=== PATIENT | female | born 2000 | race Caucasian/White ===

== ENCOUNTER 2020-10-31 06:40 | Emergency (ER) | payer OTHER ==
[~2020-10-31] VITALS: Ht 162.6 cm; Wt 63.5 kg
[2020-10-31 06:45] VITALS: BP 126/87
--- NOTE | 2020-10-31 06:45 | NUR ---
to bed ambulatory
--- NOTE | 2020-10-31 06:56 | NUR ---
PATIENT 19 Y/O FEMALE BIB SELF FOR C/O COUGH AND SORE THROAT X 1 DAY. PER PATIENT, ' IT BEGAN THIS MORNING AND IT HURTS TO SWALLOW." PATIENT STATES PAIN 2/10 IN CHEST WHEN COUGHING AND RADIATES TO UPPER BACK. MEDHX: DENIES ALLERGIES: WILBERT
--- NOTE | 2020-10-31 06:59 | NUR ---
ERMD EVALUATING PATIENT AT BEDSIDE.
[2020-10-31 07:10] VITALS: BP 126/87
--- NOTE | 2020-10-31 07:10 | NUR ---
Patient discharged with v/s stable. Written and verbal after care instructions given and explained. Patient verbalized understanding. Ambulatory with steady gait. All questions addressed prior to discharge. Advised to follow up with PMD.
== END 2020-10-31 07:10 | disposition home or self-care (01) ==
LOC: MED 06:40
DX: R05 Cough (principal); R06.02 Shortness of breath
CPT/HCPCS: 99281

== ENCOUNTER 2021-09-01 21:30 | Emergency (ER) | payer OTHER ==
[~2021-09-01] VITALS: Ht 162.6 cm; Wt 63.5 kg
[2021-09-01 22:25] VITALS: BP 113/66
--- NOTE | 2021-09-01 22:31 | NUR ---
PT IN LOBBY.
[2021-09-02 00:02] LABS: BILIRUBIN,URINE NEGATIVE (NEGATIVE); BLOOD, URINE 3+ (NEGATIVE); LEUKOCYTE ESTERASE ,URINE TRACE (NEGATIVE); NITRITE, URINE NEGATIVE (NEGATIVE); UGLUCOSE NEGATIVE (NEGATIVE)
[2021-09-02 00:50] LABS: APPEARANCE,URINE CLOUDY (CLEAR); COLOR,URINE SLIGHT BLOODY (YELLOW)
[2021-09-02 00:58] LABS: RBC,URINE >100 /HPF (0-5); WBC,URINE 0-5 /HPF (0-5)
[2021-09-02 00:59] LABS: COARSE GRANULAR CASTS,URINE 0-2 /LPF (None Seen); URINE AMORPHOUS URATE 1+ /HPF (None Seen)
[2021-09-02] MEDS ORDERED: CEPH250C16 PO (01:32)
== END 2021-09-02 01:39 | disposition home or self-care (01) ==
LOC: MED 21:30
DX: O20.0 Threatened abortion (principal); O23.42 Unspecified infection of urinary tract in pregnancy, second trimester; Z3A.18 18 weeks gestation of pregnancy; Z79.899 Other long term (current) drug therapy
CPT/HCPCS: 36415; 76817; 81001; 84702; 86900; 86901; 99284; Q0092